=== PATIENT | female | born 1985 | race Caucasian/White ===

== ENCOUNTER 2017-12-26 11:53 | Emergency (ER) | payer OTHER ==
[2017-12-26 12:07] VITALS: TEMP 98
--- NOTE | 2017-12-26 13:07 | ED ---
General Adult HPI - General Chief complaint: Extremity Injury, Lower Stated complaint: Foot Pain Time Seen by Provider: 12/26/17 12:40 Source: patient, RN notes reviewed Mode of arrival: wheelchair Limitations: no limitations - History of Present Illness Initial comments: Patient 32-year-old female smoker past medical history for autism, presenting with caretakers for a foot injury that occurred 1 month ago. States that she was walking on uneven cement rolled it did have an x-ray obtained at a local ER. States a month later still having swelling. States time she has complained of pain. States she has been ambulating at times even jumping up and down on this foot and ankle. - Related Data Home Medications Medication Instructions Recorded Confirmed Acetaminophen [Children's Tylenol] 160 mg PO Q6H PRN 12/26/17 12/26/17 Gabapentin 250mg/5ml Oral 750 mg PO DAILY 12/26/17 12/26/17 Gabapentin 250mg/5ml Oral 500 mg PO HS 12/26/17 12/26/17 Ibuprofen [Motrin] 800 mg PO Q6H PRN 12/26/17 12/26/17 Mag Hydrox/Al Hydrox/Simeth 30 ml PO DAILY PRN 12/26/17 12/26/17 [Maalox] Methylphenidate HCl 60 mg PO DAILY 12/26/17 12/26/17 [Methylphenidate HCl CD] Methylphenidate HCl 20 mg PO DAILY@1600 12/26/17 12/26/17 [Methylphenidate HCl LA] Valproic Acid Oral Soln [Depakene 500 mg PO BID 12/26/17 12/26/17 Syrup] levETIRAcetam [Keppra] 750 mg PO BID 12/26/17 12/26/17 Allergies Allergy/AdvReac Type Severity Reaction Status Date / Time No Known Allergies Allergy Verified 12/26/17 13:32 Review of Systems ROS Statement: Those systems with pertinent positive or pertinent negative responses have been documented in the HPI. ROS Other: All systems not noted in ROS Statement are negative. Past Medical History Past Medical History: Seizure Disorder Additional Past Medical History / Comment(s): Autism with turrets History of Any Multi-Drug Resistant Organisms: None Reported Additional Past Surgical History / Comment(s): teeth . Past Psychological History: No Psychological Hx Reported Smoking Status: Never smoker Past Alcohol Use History: None Reported Past Drug Use History: None Reported General Exam - General Exam Comments Initial Comments: General: The patient is awake and alert, in no distress, and does not appear acutely ill. Neck: The neck is supple, there is no tenderness or JVD. Musculoskeletal: Mild swelling to the lateral malleolus. Mildly tender in this area. Sensations intact. Pedal pulse 2+. Shows good range of motion. Neurological: A&O x 3. CN II-XII intact, There are no obvious motor or sensory deficits. Coordination appears grossly intact. Speech is normal. Skin: Skin is warm and dry and no rashes or lesions are noted. Psychiatric: Normal mood and affect. Limitations: no limitations Course Vital Signs 12/26/17 12:02 Temperature 98.0 F Pulse Rate 87 Respiratory 16 Rate Blood Pressure 127/63 O2 Sat by Pulse 98 Oximetry Medical Decision Making - Medical Decision Making X-rays reviewed and are negative for any acute fracture or dislocation. Results were discussed with the patient and family. Advised to continue with Kulwinder wrap for compression when up and moving around. Denies subsequent. Advised Ice and Elevate the Affected Area. Advised Follow-Up with the Orthopedic Doctor for Further Evaluation. Disposition Clinical Impression: Ankle sprain Disposition: HOME SELF-CARE Condition: Good Instructions: Ankle Sprain (ED) Additional Instructions: Please follow-up with orthopedics as discussed over the next 2-5 days. Please continue to ice elevate the affected area using Kulwinder wrap on up and moving around. Please return to emergency room if the symptoms increase or worsen or for any other concerns. Is patient prescribed a controlled substance at d/c from ED?: No Referrals: None,Stated [Primary Care Provider] - 1-2 days Geraldo Cortez MD [STAFF PHYSICIAN] - 1-2 days Time of Disposition: 14:17
--- NOTE | 2017-12-26 14:00 | XR ---
EXAMINATION TYPE: XR ankle complete 3 views RT, XR foot complete 3 views RT DATE OF EXAM: 12/26/2017 COMPARISON: NONE HISTORY: 32-year-old female sprained right ankle last month, pain and swelling lateral side FINDINGS: Ankle: There is anterior and lateral soft tissue swelling. Ankle mortise remains congruent. No acute fractur e identified. Nonspecific 4 mm density, possible calcification just adjacent to the lateral malleolus . Talar dome is intact. No acute fracture or dislocation. Foot: Type I accessory navicular. Tiny os peroneum. Mild degenerative change first MTP joint. No acute frac ture, subluxation, or dislocation. IMPRESSION: 1. Ankle: Prominent anterior and lateral soft tissue swelling. Possible 4 mm calcification adjacent t o the lateral malleolus. No acute osseous abnormality seen. Correlate for possible ligamentous injury including sprain of the lateral ligamentous complex or high ankle sprain. Injury to the peroneal ten dons or superior peroneal retinaculum could also be a consideration. MRI may be useful to further ass ess. 2. Foot: Mild first MTP joint OA. No acute osseous abnormality seen.
[2017-12-26 14:28] VITALS: BP 109/61; PULSE 84; RESP 18
== END 2017-12-26 14:28 | disposition home or self-care (01) ==
LOC: EEVIPCON 11:53 → EC 11:53
DX: S93.401A Sprain of unspecified ligament of right ankle, initial encounter (principal); F84.0 Autistic disorder; G40.909 Epilepsy, unspecified, not intractable, without status epilepticus; Z79.899 Other long term (current) drug therapy; X58.XXXA Exposure to other specified factors, initial encounter; Y93.01 Activity, walking, marching and hiking
CPT/HCPCS: 99283

== ENCOUNTER 2022-09-25 21:12 | Emergency (ER) | payer OTHER ==
[2022-09-25 21:22] VITALS: BP 94/60; PULSE 105; RESP 20
[2022-09-25] MEDS ORDERED: SODIUM CHLORIDE 0.9% 1,000 ML IV STA (22:11)
[2022-09-25] MEDS ORDERED: levETIRAcetam IV 2,000 MG in SALINE 1 100ML.BAG IVPB ONE (22:30)
[2022-09-25 22:36] LABS: ALT 13 U/L (4-34); AST 20 U/L (14-36); African American GFR (CKD) >90 (>60 ml/min/1.73 sqM); Albumin 3.9 g/dL (3.5-5.0); Alkaline Phosphatase 63 U/L (38-126); Anion Gap 7 mmol/L; Blood Urea Nitrogen 13 mg/dL (7-17); Calcium 9.4 mg/dL (8.4-10.2); Carbon Dioxide 27 mmol/L (22-30); Chloride 105 mmol/L (98-107); Glucose 95 mg/dL (74-99); Magnesium 1.7 mg/dL (1.6-2.3); Non-African American GFR(CKD) >90 (>60 ml/min/1.73 sqM); Potassium 4.4 mmol/L (3.5-5.1); Sodium 139 mmol/L (137-145); Total Bilirubin 0.2 mg/dL (0.2-1.3); Total Protein 6.9 g/dL (6.3-8.2)
[2022-09-25 22:41] LABS: Valproic Acid (Depakene) 93.7 ug/mL
[2022-09-25 22:43] LABS: Basophils % (A) 0 %; Eosinophils # (A) 0.1 k/uL (0-0.7); Eosinophils % (A) 2 %; HCT 39.8 % (34.0-46.0); HGB 13.2 gm/dL (11.4-16.0); Lymphocytes # (A) 2.2 k/uL (1.0-4.8); Lymphocytes % (A) 31 %; MCH 30.9 pg (25.0-35.0); MCHC 33.2 g/dL (31.0-37.0); MCV 92.9 fL (80.0-100.0); Mean Platelet Volume 9.3; Monocytes # (A) 0.4 k/uL (0-1.0); Monocytes % (A) 5 %; Neutrophils # (A) 4.3 k/uL (1.3-7.7); Neutrophils % (A) 61 %; Platelet Count 166 k/uL (150-450); RBC 4.28 m/uL (3.80-5.40); RDW 12.3 % (11.5-15.5); WBC 7.1 k/uL (3.8-10.6)
--- NOTE | 2022-09-25 23:09 | CT ---
EXAMINATION TYPE: CT brain wo con DATE OF EXAM: 09/25/2022 COMPARISON: None. HISTORY: seizure activity CT DLP: 1106.4 mGycm. Automated Exposure Control for Dose Reduction was Utilized. TECHNIQUE: CT scan of the head is performed without contrast. FINDINGS: There is no acute intracranial hemorrhage, mass effect, or midline shift identified. The ventricles and sulci are within normal limits in size. Howell-white matter differentiation is maintain ed. Moderate mucosal thickening in the visualized portion of left maxillary sinus otherwise the paran rojelio sinuses are clear. The globes are intact bilaterally. IMPRESSION: Chronic left maxillary sinus disease otherwise unremarkable study.
--- NOTE | 2022-09-25 23:10 | XR ---
EXAMINATION TYPE: XR chest 1V portable DATE OF EXAM: 09/25/2022 COMPARISON: NONE HISTORY: Seizure and weakness. TECHNIQUE: Single AP portable frontal supine view of the chest is obtained. FINDINGS: There is no focal air space opacity, pleural effusion, or pneumothorax seen. The cardiac silhouette size is upper limits of normal. The osseous structures are intact. IMPRESSION: No acute process.
--- NOTE | 2022-09-26 00:02 | ED ---
General Adult HPI - General Chief complaint: Seizure Stated complaint: Seizures Time Seen by Provider: 09/25/22 21:49 Source: patient, RN notes reviewed, old records reviewed Mode of arrival: wheelchair Limitations: no limitations - History of Present Illness Initial comments: Patient is a 36-year-old female with past medical history remarkable for seizure disorder, autism with Tourette's with Baseline is alert and oriented to self and is verbal presents emergency department after multiple seizures at home today. Some were witnessed. Some were seen over a monitor. Patient apparently had multiple generalized tonic-clonic seizures. She is on multiple medications including Keppra and Depakote. Last seizure was apparently 1-2 hr prior to arrival. Patient cannot provide any history. She is below her baseline according to family who is at bedside. Patient apparently at baseline is alert to self and will interact with others as well as swear from her Tourette's. She is currently sitting call Sunday, cooperating somewhat with exam. Family states this is below her baseline and they were worried because she has not had multiple seizures like this in quite some time. They state she is compliant with medications. No evidence of infection at home including denying any fevers, cough, chills. No nausea or vomiting or diarrhea. No other acute complaints at this time. Presents for further evaluation of a concern for seizures and patient is still not back to her normal baseline mental status. - Related Data Home Medications Medication Instructions Recorded Confirmed Acetaminophen [Children's Tylenol] 160 mg PO Q6H PRN 12/26/17 12/26/17 Gabapentin 250mg/5ml Oral 750 mg PO DAILY 12/26/17 12/26/17 Gabapentin 250mg/5ml Oral 500 mg PO HS 12/26/17 12/26/17 Ibuprofen [Motrin] 800 mg PO Q6H PRN 12/26/17 12/26/17 Mag Hydrox/Al Hydrox/Simeth 30 ml PO DAILY PRN 12/26/17 12/26/17 [Maalox] Methylphenidate HCl 60 mg PO DAILY 12/26/17 12/26/17 [Methylphenidate HCl CD] Methylphenidate HCl 20 mg PO DAILY@1600 12/26/17 12/26/17 [Methylphenidate HCl LA] Valproic Acid Oral Soln [Depakene 500 mg PO BID 07/25/18 07/25/18 Syrup] levETIRAcetam [Keppra] 750 mg PO BID 12/26/17 12/26/17 Allergies Allergy/AdvReac Type Severity Reaction Status Date / Time No Known Allergies Allergy Verified 12/26/17 13:32 Review of Systems ROS Statement: Those systems with pertinent positive or pertinent negative responses have been documented in the HPI. ROS Other: All systems not noted in ROS Statement are negative. Past Medical History Past Medical History: Seizure Disorder Additional Past Medical History / Comment(s): Autism with turrets History of Any Multi-Drug Resistant Organisms: None Reported Additional Past Surgical History / Comment(s): teeth . Past Psychological History: No Psychological Hx Reported Past Alcohol Use History: None Reported Past Drug Use History: None Reported General Exam - General Exam Comments Initial Comments: General: Appears in no acute distress. HEAD: Normal with no signs of head trauma. EYES: PERRLA, EOMI, conjunctiva normal, no discharge. Pupils are 3 mm and equal bilaterally. ENT: Hearing grossly intact, normal oropharynx. RESPIRATORY: Clear breath sounds bilaterally. No wheezes, rales, or rhonchi. C/V: Regular rate and rhythm. S1 and S2 auscultated, peripheral pulses 2+ and intact throughout ABD: Abd is soft, nontender, nondistended EXT: No obvious deformity. SKIN: No rashes or lesions observed on exposed skin. NEURO: Alert. Not oriented. Moving all 4 extremities. Neuro exam is difficult to complete due to the patient's baseline mental status as well as her seizure history. Postictal state currently suspected. Limitations: no limitations Course Vital Signs 09/25/22 21:19 Pulse Rate 105 H Respiratory 20 Rate Blood Pressure 94/60 O2 Sat by Pulse 95 Oximetry Medical Decision Making - Medical Decision Making Was pt. sent in by a medical professional or institution (, PA, EXHIBIT ELECTRICIAN, urgent care, hospital, or half-way...) When possible be specific @ -No Did you speak to anyone other than the patient for history (EMS, parent, family, police, friend...)? What history was obtained from this source @ -I spoke with patient's legal guardians, family mother and sister who are at bedside. The provide all of the patient's history. Did you review nursing and triage notes (agree or disagree)? Why? @ -I reviewed and agree with nursing and triage notes Were old charts reviewed (outside hosp., previous admission, EMS record, old EKG, old radiological studies, urgent care reports/EKG's, half-way records)? Report findings @ -No old charts were reviewed Differential Diagnosis (chest pain, altered mental status, abdominal pain women, abdominal pain men, vaginal bleeding, weakness, fever, dyspnea, syncope, headache, dizziness, GI bleed, back pain, seizure, CVA, palpatations, mental health, musculoskeletal)? @ -Differential Seizure: Recurrent seizure disorder, febrile seizure, alcohol withdrawal, stimulants, meningitis, encephalitis, intercranial hemorrhage, intracranial tumor, stroke, eclampsia, thyrotoxicosis, hypocalcemia, hyponatremia, hypernatremia, hypomagnesemia, psychogenic, this is not meant to be an all-inclusive list. EKG interpreted by me (3pts min.). @ -As above X-rays interpreted by me (1pt min.). @ -Chest x-ray reveals no obvious acute cardio pulmonary process. CT interpreted by me (1pt min.). @ -CT brain reveals no obvious acute intracranial process. U/S interpreted by me (1pt. min.). @ -None done What testing was considered but not performed or refused? (CT, X-rays, U/S, labs)? Why? @ -None What meds were considered but not given or refused? Why? @ -None Did you discuss the management of the patient with other professionals (professionals i.e. , PA, EXHIBIT ELECTRICIAN, lab, RT, psych nurse, social science analyst, attorney lawyer, t eacher, us customs and border officer, caseworker protective services)? Give summary @ -Spoke with Dr. Trent who accepted the patient after discussing the case with his SPOKE MAKER Dr. Mirza who accepted the patient. Was smoking cessation discussed for >3mins.? @ -No Was critical care preformed (if so, how long)? @ -Yes, 35 minutes Were there social determinants of health that impacted care today? How? (Homelessness, low income, unemployed, alcoholism, drug addiction, transportation, low edu. Level, literacy, decrease access to med. care, snf, rehab)? @ -No Was there de-escalation of care discussed even if they declined (Discuss DNR or withdrawal of care, Hospice)? DNR status @ -No What co-morbidities impacted this encounter? (DM, HTN, Smoking, COPD, CAD, Cancer, CVA, ARF, Chemo, Hep., AIDS, mental health diagnosis, sleep apnea, morbid obesity)? @ -History of autism, Tourette's disease, epilepsy Was patient admitted / discharged? Hospital course, mention meds given and route, prescriptions, significant lab abnormalities, going to OR and other pertinent info. @ -Based on the patient's presentation and physical exam, she had multiple breakthrough seizures at home today. She remains below her baseline mental status, which is difficult to assess due to her past medical history an underlying conditions. Relying upon the patient's mother and sister who are providing the history as well as the patient's baseline. Last seizure was a partially 2 hours ago and she is compliant with medications apparently. Patient will be given a 1 L fluid bolus and we will obtain seizure workup including brain CT, chest x-ray, EKG. They were in agreement this plan. Vital signs with in acceptable limits. No obvious seizure activity at this time. Seizure precautions ordered. Patient will receive a 2 g bolus of IV Keppra. Family was in agreement this plan. EKG is unremarkable. Imaging is unremarkable. Laboratory studies are remarkable for a therapeutic valproic acid level. Lactic acid is within normal limits at 1.1. Remainder of the labs are unremarkable. On reevaluation, after discussion with patient's family and update them on the workup, they are concerned that she is still below her baseline as she is still more sleepy than normal. I did discuss with him that because of this, I do recommend that we transfer the patient for 24-hour EEG which we do not have here at our facility. They were in agreement this plan. I spoke with Gilda Barnett initially, Dr. Trent of the ER who is working on transfer. They're looking for approval from there at the left I'll just write a transfer. Transfer was initiated at 23:45. [facility] patient is accepted at 00 45 after discussion with the SPOKE MAKER Dr. Mirza. Accepting physician is Dr. Trent. Undiagnosed new problem with uncertain prognosis? @ -No Drug Therapy requiring intensive monitoring for toxicity (Heparin, Nitro, Insulin, Cardizem)? @ -No Were any procedures done? @ -No Diagnosis/symptom? @ -Breakthrough seizure, history of epilepsy Acute, or Chronic, or Acute on Chronic? @ -Acute on chronic Uncomplicated (without systemic symptoms) or Complicated (systemic symptoms)? @ -Complicated Side effects of treatment? @ -No Exacerbation, Progression, or Severe Exacerbation? @ -No Poses a threat to life or bodily function? How? (Chest pain, [place], NM, pneumonia, PE, COPD, DKA, ARF, appy, cholecystitis, CVA, Diverticulitis, Homicidal, Sheriff icidal, threat to staff... and all critical care pts) @ -Potentially - Lab Data Result diagrams: 09/25/22 22:00 09/25/22 22:00 Lab Results 09/25/22 09/25/22 09/25/22 Range/Units 22:00 22:00 22:00 WBC 7.1 (3.8-10.6) k/uL RBC 4.28 (3.80-5.40) m/uL Hgb 13.2 (11.4-16.0) gm/dL Hct 39.8 (34.0-46.0) % MCV 92.9 (80.0-100.0) fL MCH 30.9 (25.0-35.0) pg MCHC 33.2 (31.0-37.0) g/dL RDW 12.3 (11.5-15.5) % Plt Count 166 (150-450) k/uL MPV 9.3 Neutrophils % 61 % Lymphocytes % 31 % Monocytes % 5 % Eosinophils % 2 % Basophils % 0 % Neutrophils # 4.3 (1.3-7.7) k/uL Lymphocytes # 2.2 (1.0-4.8) k/uL Monocytes # 0.4 (0-1.0) k/uL Eosinophils # 0.1 (0-0.7) k/uL Basophils # 0.0 (0-0.2) k/uL Sodium 139 (137-145) mmol/L Potassium 4.4 (3.5-5.1) mmol/L Chloride 105 (98-107) mmol/L Carbon Dioxide 27 (22-30) mmol/L Anion Gap 7 mmol/L BUN 13 (7-17) mg/dL Creatinine 0.57 (0.52-1.04) mg/dL Est GFR (CKD-EPI)AfAm >90 (>60 ml/min/1.73 sqM) Est GFR (CKD-EPI)NonAf >90 (>60 ml/min/1.73 sqM) Glucose 95 (74-99) mg/dL Plasma Lactic Acid Ricky 1.1 (0.7-2.0) mmol/L Calcium 9.4 (8.4-10.2) mg/dL Magnesium 1.7 (1.6-2.3) mg/dL Total Bilirubin 0.2 (0.2-1.3) mg/dL AST 20 (14-36) U/L ALT 13 (4-34) U/L Alkaline Phosphatase 63 (38-126) U/L Total Protein 6.9 (6.3-8.2) g/dL Albumin 3.9 (3.5-5.0) g/dL Valproic Acid 93.7 ug/mL Influenza Type A (PCR) (Not Detectd) Influenza Type B (PCR) (Not Detectd) RSV (PCR) (Not Detectd) SARS-CoV-2 (PCR) (Not Detectd) 09/25/22 Range/Units 22:44 WBC (3.8-10.6) k/uL RBC (3.80-5.40) m/uL Hgb (11.4-16.0) gm/dL Hct (34.0-46.0) % MCV (80.0-100.0) fL MCH (25.0-35.0) pg MCHC (31.0-37.0) g/dL RDW (11.5-15.5) % Plt Count (150-450) k/uL MPV Neutrophils % % Lymphocytes % % Monocytes % % Eosinophils % % Basophils % % Neutrophils # (1.3-7.7) k/uL Lymphocytes # (1.0-4.8) k/uL Monocytes # (0-1.0) k/uL Eosinophils # (0-0.7) k/uL Basophils # (0-0.2) k/uL Sodium (137-145) mmol/L Potassium (3.5-5.1) mmol/L Chloride (98-107) mmol/L Carbon Dioxide (22-30) mmol/L Anion Gap mmol/L BUN (7-17) mg/dL Creatinine (0.52-1.04) mg/dL Est GFR (CKD-EPI)AfAm (>60 ml/min/1.73 sqM) Est GFR (CKD-EPI)NonAf (>60 ml/min/1.73 sqM) Glucose (74-99) mg/dL Plasma Lactic Acid Ricky (0.7-2.0) mmol/L Calcium (8.4-10.2) mg/dL Magnesium (1.6-2.3) mg/dL Total Bilirubin (0.2-1.3) mg/dL AST (14-36) U/L ALT (4-34) U/L Alkaline Phosphatase (38-126) U/L Total Protein (6.3-8.2) g/dL Albumin (3.5-5.0) g/dL Valproic Acid ug/mL Influenza Type A (PCR) Not Detected (Not Detectd) Influenza Type B (PCR) Not Detected (Not Detectd) RSV (PCR) Not Detected (Not Detectd) SARS-CoV-2 (PCR) Not Detected (Not Detectd) - EKG Data -: EKG Interpreted by Me EKG Comments: 12-lead Electrocardiogram Interpretation Note EKG was reviewed and interpreted by myself. 12-lead ECG performed at 2001 to is interpreted by me as revealing normal sinus rhythm at a rate of 92 beats per minute. Bruning is normal. [place] interval is 95 ms, QRS duration is 86 ms, QTc is 383 ms.. There were no ST or T wave abnormalities to suggest myocardial is chemia or injury. R wave progression across the precordium was satisfactory. By my interpretation this EKG is non-diagnostic for acute ischemia. Critical Care Time Critical Care Time: Yes Total Critical Care Time: 35 Critical Care Time: Upon my evaluation, this patient had a high probability of imminent or life- threatening deterioration due to transfer, breakthrough seizure, which required my direct attention, intervention, and personal management. I have personally provided 35 minutes of critical care time exclusive of time spent on separately billable procedures. Time includes review of laboratory data, radiology results, discussion with consultants, and monitoring for potential decompensation. Interventions were performed as documented in my note. Disposition Clinical Impression: Breakthrough seizure Disposition: OTHER INSTITUTION NOT DEFINED Condition: Stable Instructions (If sedation given, give patient instructions): Seizure/Epilepsy Discharge Instructions & Follow-Up Referrals: Tyler Garza MD [Primary Care Provider] - 1-2 days Time of Disposition: 23:40 - Out of Hospital Transfer - Req. Specs Out of Hospital Transfer - Requested Specifics: Other Emergency Center (Transferred to [facility] for 24 hour EEG.)
[2022-09-26] MEDS ORDERED: SODIUM CHLORIDE 0.9% 1,000 ML IV STA (00:09)
== END 2022-09-26 01:30 | disposition other institution (70) ==
LOC: EC 21:12
DX: G40.909 Epilepsy, unspecified, not intractable, without status epilepticus (principal); J32.0 Chronic maxillary sinusitis; Z20.822 Contact with and (suspected) exposure to COVID-19
CPT/HCPCS: 36415; 80164; 80053; 83605; 83735; 85025; 87636; 71045; 70450; 99291; 96365; 96361; J1953; 93005

== ENCOUNTER 2023-02-06 12:31 | Emergency (ER) | payer OTHER ==
[2023-02-06 12:36] VITALS: BP 107/64; PULSE 95; RESP 20; TEMP 98
--- NOTE | 2023-02-06 13:19 | XR ---
EXAMINATION TYPE: XR foot complete LT DATE OF EXAM: 02/06/2023 1:07 PM CLINICAL INDICATION:Female, 37 years old with history of Redness and swelling; [facility] COMPARISON: None TECHNIQUE: The left foot was examined in the AP, oblique, and lateral projections. FINDINGS: No evidence of any acute osseous pathology. No evidence of soft tissue swelling. Joints are preserve d. There is some soft tissue swelling around the foot most pronounced on the dorsal aspect. No radiop aque foreign body. No subcutaneous gas. IMPRESSION: 1. No evidence of acute fracture. 2. Soft tissue swelling over the dorsal foot without evidence for septations gas or radiopaque forei gn body. Correlate for cellulitis.
--- NOTE | 2023-02-06 13:27 | ED ---
Extremity Problem HPI - General Chief complaint: Extremity Injury, Lower Stated complaint: left foot injury Time Seen by Provider: 02/06/23 12:38 Source: family, RN notes reviewed Mode of arrival: ambulatory Limitations: physical limitation - History of Present Illness Initial comments: This is a 37-year-old female who presents to the emergency department for left foot redness and swelling. The patient is autistic and nonverbal at baseline. Her mother states that she noticed some redness to the top of the left foot yesterday with increasing swelling today. Her mother wonders if she may have injured her foot somehow by slamming it into a door. However, the patient has been ambulating without difficulty. Her mother notes that she has also seemed much more calm and relaxed than usual. MD Complaint: extremity swelling - Related Data Home Medications Medication Instructions Recorded Confirmed Acetaminophen [Children's Tylenol] 160 mg PO Q6H PRN 12/26/17 12/26/17 Gabapentin 250mg/5ml Oral 750 mg PO DAILY 12/26/17 12/26/17 Gabapentin 250mg/5ml Oral 500 mg PO HS 12/26/17 12/26/17 Ibuprofen [Motrin] 800 mg PO Q6H PRN 12/26/17 12/26/17 Mag Hydrox/Al Hydrox/Simeth 30 ml PO DAILY PRN 12/26/17 12/26/17 [Maalox] Methylphenidate HCl 60 mg PO DAILY 12/26/17 12/26/17 [Methylphenidate HCl CD] Methylphenidate HCl 20 mg PO DAILY@1600 12/26/17 12/26/17 [Methylphenidate HCl LA] Valproic Acid Oral Soln [Depakene 500 mg PO BID 12/26/17 12/26/17 Syrup] levETIRAcetam [Keppra] 750 mg PO BID 12/26/17 12/26/17 Previous Rx's Medication Instructions Recorded cephALEXin [Keflex Oral Susp] 500 mg PO Q6H 7 Days #280 ml 02/06/23 Allergies Allergy/AdvReac Type Severity Reaction Status Date / Time No Known Allergies Allergy Verified 02/06/23 12:37 Review of Systems ROS Statement: Those systems with pertinent positive or pertinent negative responses have been documented in the HPI. ROS Other: All systems not noted in ROS Statement are negative. Past Medical History Past Medical History: Seizure Disorder Additional Past Medical History / Comment(s): Autism with turrets History of Any Multi-Drug Resistant Organisms: None Reported Additional Past Surgical History / Comment(s): teeth . Past Psychological History: No Psychological Hx Reported Smoking Status: Never smoker Past Alcohol Use History: Occasional Past Drug Use History: Marijuana General Exam Limitations: physical limitation General appearance: alert Head exam: Present: atraumatic, normocephalic, normal inspection Respiratory exam: Present: normal lung sounds bilaterally. Absent: respiratory distress, wheezes, rales, rhonchi, stridor Cardiovascular Exam: Present: regular rate, normal rhythm, normal heart sounds. Absent: systolic murmur, diastolic murmur, rubs, gallop, clicks Extremities exam: Present: other (Erythema and swelling to the dorsal aspect of the left foot and the left third toe. 2+ DP and PT pulses. Capillary refill less than 1 second. Patient does not pull away or exhibit signs of distress on palpation.) Neurological exam: Present: alert Skin exam: Present: warm, dry, intact Course Vital Signs 02/06/23 12:34 Temperature 98.0 F Pulse Rate 95 Respiratory 20 Rate Blood Pressure 107/64 O2 Sat by Pulse 99 Oximetry Medical Decision Making - Medical Decision Making This is a 37-year-old female who presents to the emergency department for left foot swelling and redness. Was pt. sent in by a medical professional or institution? @ -No Did you speak to anyone other than the patient for history? @ -Her mother provided all of the history, as the patient is nonverbal at baseline. Did you review nursing and triage notes? @ -Yes, and I agree, it is accurate with regards to the patient's symptoms. Were old charts reviewed? @ -No Differential Diagnosis? @ -Differential Foot Redness/Swelling: Fracture, contusion, cellulitis, gout, DVT, this is not meant to be an all- inclusive list. EKG interpreted by me (3pts min.)? @ -Not obtained X-rays interpreted by me (1pt min.)? @ -X-ray of the left foot obtained. My interpretation identifies soft tissue swelling and no acute fractures. CT interpreted by me (1pt min.)? @ -Not obtained U/S interpreted by me (1pt. min.)? @ -Not obtained What testing was considered but not performed? (CT, X-rays, U/S, labs)? Why? @ -None What meds were considered but not given? Why? @ -None Did you discuss the management of the patient with other professionals? @ -No Did you reconcile home meds? @ -No Was smoking cessation discussed for >3mins.? @ -No Was critical care preformed (if so, how long)? @ -No Were there social determinants of health that impacted care today? How? (Homelessness, low income, unemployed, alcoholism, drug addiction, transportation, low edu. Level, literacy, decrease access to med. care, usp, rehab)? @ -No Was there de-escalation of care discussed even if they declined? (Discuss DNR or withdrawal of care, Hospice)? @ -No What co-morbidities impacted this encounter? (DM, HTN, Smoking, COPD, CAD, Cancer, CVA, Hep., AIDS, mental health diagnosis, sleep apnea, morbid obesity)? @ -None Was patient admitted / discharged? @ -Discharged. X-ray of the left foot obtained revealing soft tissue swelling and no acute fractures. The erythematous appearance with associated swelling is more so suggestive of a cellulitis and we will treat the patient for such. Prescription for Keflex provided with dosing instructions reviewed. Advised her family to watch this closely and follow up with her primary care provider for reevaluation. Undiagnosed new problem with uncertain prognosis? @ -None Drug Therapy requiring intensive monitoring for toxicity (Heparin, Nitro, Insulin, Cardizem)? @ -None Were any procedures done? @ -None Diagnosis/symptom? @ -Cellulitis Acute, or Chronic, or Acute on Chronic? @ -Acute Uncomplicated (without systemic symptoms) or Complicated (systemic symptoms)? @ -Uncomplicated Side effects of treatment? @ -None Exacerbation, Progression, or Severe Exacerbation] @ -Not applicable Poses a threat to life or bodily function? @ -No Return precautions reviewed in depth, the patient is instructed to return to the emergency department with any new, worsening, or concerning symptoms. Patient's mother verbalized understanding. This case was discussed in detail with the attending ED physician, Dr. Corley. Presentation, findings, and treatment plan discussed in detail as well. - Radiology Data Radiology results: report reviewed, image reviewed Disposition Clinical Impression: Cellulitis Disposition: HOME SELF-CARE Instructions (If sedation given, give patient instructions): Cellulitis (ED) Additional Instructions: Return to the emergency department with any new, worsening, or concerning symptoms. She will take the antibiotics as prescribed for 7 days. Follow up with her primary care provider in 1-2 days. Prescriptions: cephALEXin [Keflex Oral Susp] 500 mg PO Q6H 7 Days #280 ml Is patient prescribed a controlled substance at d/c from ED?: No Referrals: Nonstaff,Physician [Primary Care Provider] - 1-2 days
== END 2023-02-06 14:18 | disposition home or self-care (01) ==
LOC: EC 12:31
DX: L03.116 Cellulitis of left lower limb (principal); F12.90 Cannabis use, unspecified, uncomplicated
CPT/HCPCS: 99283